=== PATIENT | male | born 1950 | race Caucasian/White ===

== ENCOUNTER → 2016-07-21 11:14 | Outpatient (CLI) | payer MEDICARE, MEDICAID ==
[2016-01-31 10:52] VITALS: BMI 30.7
[~2016-07-21 11:14] MED LIST: ALBUTEROL2.5 MG/3 M INH; AMBIEN10 MG PO; AMBIEN5 MG PO; ASPIRIN81 MG PO; BLOOD PRESSURE MED PO; COLACE100 MG PO; ECOTRIN325 MG PO; HEMOCYTE PLUS C1 CAP PO; HYDROCODON-ACE1 EAC7 PO; HYDROCODONE-APA1 TAB PO; LEVAQUIN750 MG PO; LOPRESSOR25 MG PO; MEDROL DOSE PACK4 MG PO; MOBIC7.5 MG PO; PLAVIX75 MG PO; PRINIVIL20 MG PO; PROVENTIL HFA6.7 GM INH; SENOKOT-S TABLE1 TAB PO; SLEEPING PILL PO; ULTRAM50 MG PO; [UNRECOGNIZED DRUG - OTHER] NEB
== END | disposition home or self-care (01) ==
LOC: D.LAB 11:14
DX: N40.1 Benign prostatic hyperplasia with lower urinary tract symptoms (principal)

== ENCOUNTER → 2016-08-18 13:45 | Outpatient (CLI) | payer MEDICARE, MEDICAID ==
[2016-01-31 10:52] VITALS: BMI 30.7
== END | disposition home or self-care (01) ==
LOC: D.CT 13:30
DX: R91.8 Other nonspecific abnormal finding of lung field (principal)

== ENCOUNTER → 2017-01-19 08:40 | Outpatient (CLI) | payer MEDICARE, MEDICAID ==
[2016-01-31 10:52] VITALS: BMI 30.7
== END | disposition home or self-care (01) ==
LOC: D.CT 08:40
DX: R94.2 Abnormal results of pulmonary function studies (principal)

== ENCOUNTER → 2017-08-06 07:57 | Outpatient (CLI) | payer MEDICARE, MEDICAID ==
[2016-01-31 10:52] VITALS: BMI 30.7
== END | disposition home or self-care (01) ==
LOC: D.CT 07-09 09:30
DX: R91.8 Other nonspecific abnormal finding of lung field (principal)